=== PATIENT | male | born 1965 | race Caucasian/White ===

== ENCOUNTER → 2020-03-15 16:50 | Outpatient (BNVA) | payer OTHER, SELFPAY | PROVIDERS: Family Provider Nurse Practitioner Family; PCP Nurse Practitioner Family; Visit Provider Nurse Practitioner Family | DX: I10 Essential (primary) hypertension (principal); I50.9 Heart failure, unspecified; Z23 Encounter for immunization; Z96.659 Presence of unspecified artificial knee joint | CPT/HCPCS: 80053; 80061; 84443; 85025 ==

== ENCOUNTER → 2020-07-27 13:11 | Outpatient (BNVA) | payer OTHER, SELFPAY | PROVIDERS: Family Provider Nurse Practitioner Family; PCP Nurse Practitioner Family; Visit Provider Nurse Practitioner Family | DX: I50.9 Heart failure, unspecified (principal); I10 Essential (primary) hypertension; G62.9 Polyneuropathy, unspecified; Z96.659 Presence of unspecified artificial knee joint | CPT/HCPCS: 80053; 80061; 84443; 85025 ==

== ENCOUNTER → 2021-01-09 16:04 | Outpatient (BNVA) | payer OTHER, SELFPAY | PROVIDERS: Family Provider Nurse Practitioner Family; PCP Nurse Practitioner Family; Visit Provider Nurse Practitioner Family | DX: S89.91XA Unspecified injury of right lower leg, initial encounter (principal); I10 Essential (primary) hypertension; X58.XXXA Exposure to other specified factors, initial encounter | CPT/HCPCS: 73562; 80053; 80061; 85025 ==

== ENCOUNTER 2021-02-17 19:36 | Emergency (ER) | payer OTHER, SELFPAY ==
[2021-02-17 19:51] VITALS: BP 148/90; PULSE 100; RESP 14; TEMP 36.3; O2SAT 96; BMI 37.5
[2021-02-17 20:40] VITALS: RESP 17; O2SAT 98
[2021-02-17] MEDS: morphine 4 mg/mL SDV 1 mL IM (20:40)
[2021-02-17] MEDS: neomycin-poly-bacitracin oint 28 gm 1 APPLIC TOPICAL (20:41)
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
[2021-02-17] MEDS: tetanus-dipt-pertussis 0.5 mL SDV IM (21:12)
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
[2021-02-17 21:43] VITALS: BP 138/87; PULSE 99; RESP 17; TEMP 36.6; O2SAT 96
--- NOTE | 2021-02-19 14:21 | DCPLANNER ---
tax manager had message to schedule a follow up appointment with Wound Care. tax manager called the Wound Care clinic, spoke with Kina, gave clinic patients information. tax manager was told that a follow up appointment is scheduled for Saturday, February 20, 2021 at 10:[address] Bermudez. Clinic will call patient with appointment information.
--- NOTE | 2021-03-14 13:48 | DCPLANNER ---
Patient had a follow up appointment scheduled for 02.20.21 with wound care, with Dr. Bermudez - patient did attend appointment.
== END 2021-02-17 21:52 | disposition home or self-care (01) ==
PROVIDERS: Emergency Provider Family Medicine; PCP Nurse Practitioner Family
DX: T22.011A Burn of unspecified degree of right forearm, initial encounter (principal); T23.001A Burn of unspecified degree of right hand, unspecified site, initial encounter; T20.00XA Burn of unspecified degree of head, face, and neck, unspecified site, initial encounter; T25.011A Burn of unspecified degree of right ankle, initial encounter; T31.0 Burns involving less than 10% of body surface; X01.0XXA Exposure to flames in uncontrolled fire, not in building or structure, initial encounter; I11.0 Hypertensive heart disease with heart failure; I50.9 Heart failure, unspecified; Z23 Encounter for immunization
CPT/HCPCS: 16020; 90471; 90715; 96372; 99283; J2270

== ENCOUNTER 2021-02-20 10:01 | Outpatient (CLI) | payer OTHER, SELFPAY | END 2021-02-20 10:02 | disposition home or self-care (01) | LOC: WOUND 10:03 | PROVIDERS: PCP Nurse Practitioner Family; Visit Provider Thoracic Surgery (Cardiothoracic Vascular Surgery) | DX: T23.261A Burn of second degree of back of right hand, initial encounter (principal); T25.211A Burn of second degree of right ankle, initial encounter; X08.8XXA Exposure to other specified smoke, fire and flames, initial encounter; L97.522 Non-pressure chronic ulcer of other part of left foot with fat layer exposed | CPT/HCPCS: 97597; G0463 ==

== ENCOUNTER 2021-02-27 15:06 | Outpatient (CLI) | payer OTHER, SELFPAY | END 2021-02-27 15:07 | disposition home or self-care (01) | LOC: WOUND 15:07 | PROVIDERS: PCP Nurse Practitioner Family; Visit Provider Thoracic Surgery (Cardiothoracic Vascular Surgery) | DX: L97.522 Non-pressure chronic ulcer of other part of left foot with fat layer exposed (principal); T23.261A Burn of second degree of back of right hand, initial encounter; T25.211A Burn of second degree of right ankle, initial encounter; X08.8XXA Exposure to other specified smoke, fire and flames, initial encounter | CPT/HCPCS: G0463 ==

== ENCOUNTER → 2021-06-26 11:20 | Outpatient (BNVA) | payer OTHER, SELFPAY | PROVIDERS: PCP Nurse Practitioner Family; Visit Provider Family Medicine | DX: G62.9 Polyneuropathy, unspecified (principal); I10 Essential (primary) hypertension; I50.9 Heart failure, unspecified; Z12.5 Encounter for screening for malignant neoplasm of prostate | CPT/HCPCS: 80053; 80061; 83880; 84443; G0103 ==

== ENCOUNTER → 2022-05-13 16:53 | Outpatient (BNVA) | payer OTHER, SELFPAY | PROVIDERS: PCP Nurse Practitioner Family; Visit Provider Family Medicine | DX: I10 Essential (primary) hypertension (principal); Z12.5 Encounter for screening for malignant neoplasm of prostate; I50.9 Heart failure, unspecified; G62.9 Polyneuropathy, unspecified; Z00.00 Encounter for general adult medical examination without abnormal findings | CPT/HCPCS: 80053; 80061; 84443; 85025; G0103 ==

== ENCOUNTER → 2023-08-12 12:07 | Outpatient (BNVA) | payer OTHER, SELFPAY | PROVIDERS: PCP Nurse Practitioner Family; Visit Provider Nurse Practitioner Family | DX: Z12.5 Encounter for screening for malignant neoplasm of prostate; I10 Essential (primary) hypertension; I50.9 Heart failure, unspecified; R73.9 Hyperglycemia, unspecified | CPT/HCPCS: 80053; 80061; 83036; 83880; 84443; 85025; G0103 ==

== ENCOUNTER 2024-05-25 14:00 | Emergency (ER) | payer OTHER, SELFPAY ==
[2024-05-25 14:13] VITALS: BP 153/89; PULSE 98; RESP 18; TEMP 36.7; O2SAT 94
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
[2024-05-25 14:33] VITALS: BP 148/92; PULSE 89; RESP 16; TEMP 36.7; O2SAT 95
== END 2024-05-25 14:39 | disposition home or self-care (01) ==
PROVIDERS: Emergency Provider Physician Assistant; PCP Nurse Practitioner Family
DX: S01.01XA Laceration without foreign body of scalp, initial encounter (principal); I11.0 Hypertensive heart disease with heart failure; I50.9 Heart failure, unspecified; W22.8XXA Striking against or struck by other objects, initial encounter
CPT/HCPCS: 12001; 99282

== ENCOUNTER → 2024-07-15 09:18 | Outpatient (BNVA) | payer OTHER, SELFPAY | PROVIDERS: PCP Nurse Practitioner Family; Visit Provider Family Medicine | DX: R73.9 Hyperglycemia, unspecified (principal) | CPT/HCPCS: 80053; 80061; 82306; 83036; 84443; 85025 ==

== ENCOUNTER → 2024-08-11 12:15 | Outpatient (BNVA) | payer OTHER, SELFPAY | PROVIDERS: PCP Nurse Practitioner Family; Visit Provider Family Medicine | DX: Z12.5 Encounter for screening for malignant neoplasm of prostate (principal); B35.9 Dermatophytosis, unspecified; I50.9 Heart failure, unspecified; W57.XXXA Bitten or stung by nonvenomous insect and other nonvenomous arthropods, initial encounter | CPT/HCPCS: 80076; 83880; 86618; 86666; 86757; G0103 ==

== ENCOUNTER → 2025-10-18 16:02 | Outpatient (BNVA) | payer OTHER, SELFPAY | PROVIDERS: PCP Nurse Practitioner Family; Visit Provider Nurse Practitioner Family | DX: I10 Essential (primary) hypertension (principal); I50.9 Heart failure, unspecified; Z12.5 Encounter for screening for malignant neoplasm of prostate | CPT/HCPCS: 80053; 80061; 82306; 82607; 83036; 83880; 84443; 85025; G0103 ==

== ENCOUNTER 2025-10-24 10:58 | Outpatient (CLI) | payer OTHER, SELFPAY ==
--- NOTE | 2025-10-24 11:02 | XRR_ITS ---
PROCEDURE INFORMATION: Exam: XR Right Femur Exam date and time: 10/24/2025 11:12 AM Age: 59 years old Clinical indication: Injury or trauma; Other: Fall from ladder; Blunt trauma; Thigh or upper leg; Injury details: Low back, RT femur and hip pain, chronic, PT fell off ladder 3-4 months ago; Prior surgery; Surgery date: 1-6 months; Surgery type: Right femur; Additional info: M79.604 - pain in right leg TECHNIQUE: Imaging protocol: Radiologic exam of the right femur. Views: 2 views. COMPARISON: CR XR knee RT 3V* [id number] 01/09/2021 4:06 PM FINDINGS: Bones/joints: There is severe right hip degenerative osteoarthritis with complete loss of the superior articular joint space. Chronic degenerative subchondral sclerosis and subchondral cyst formation is evident within the right acetabulum and femoral head. There is marginal osteophytosis. There is a healed distal femoral diaphyseal fracture. Low compression lateral plate and screw fixator it spans the right femoral diaphysis. There are 2 fractured screws at the proximal femoral diaphysis without evidence of hardware displacement or retraction. Long stem constrained total knee arthroplasty is partially visualized. The patella is located. It is small in caliber with chronic remodeling. Soft tissues: Unremarkable. XR/XR femur RT min 2V* [id number] IMPRESSION: 1. Severe right hip degenerative osteoarthritis, stable. 2. Stable nondisplaced fractures of proximal femoral fixation screws. 3. Healed distal femoral diaphyseal fracture with chronic bone remodeling.
--- NOTE | 2025-10-24 11:02 | XRR_ITS ---
PROCEDURE INFORMATION: Exam: XR Right Hip Exam date and time: 10/24/2025 11:12 AM Age: 59 years old Clinical indication: Injury or trauma; Other: Fall from ladder; Blunt trauma (contusions or hematomas); Injury details: Low back, RT femur and hip pain, chronic, PT fell off ladder 3-4 months ago; Prior surgery; Surgery date: 1-6 months; Surgery type: Right femur; Additional info: M25.551 - pain in right hip TECHNIQUE: Imaging protocol: Radiologic exam of the right hip. Views: 1 view hip with pelvis when performed. COMPARISON: CR XR lumbar spine 2-3V* [id number] 10/24/2025 11:12 AM FINDINGS: Bones/joints: There is a left total hip arthroplasty. There is severe right hip degenerative osteoarthritis. There is complete loss of the superior articular joint space with degenerative subchondral cysts and subchondral sclerosis within the right femoral head and acetabulum. Proximal aspect of right femoral compression plate and screw fixation device is identified. The 2nd and 3rd fixation screws when counting from superior position are fractured. They are not retracted or distracted. The plate and screw fixation device is intact along the lateral cortex. There is partial visualization of remodeling of the right femoral diaphysis. Soft tissues: Unremarkable. XR/XR hip RT 2-3V wo/w pel* [id number] IMPRESSION: 1. Severe right hip degenerative osteoarthritis 2. Fractures of 2 of the proximal cortical screws within the lateral femoral fixation plate.
--- NOTE | 2025-10-24 11:02 | XRR_ITS ---
PROCEDURE INFORMATION: Exam: XR Lumbosacral Spine Exam date and time: 10/24/2025 11:12 AM Age: 59 years old Clinical indication: Injury or trauma; Other: Fall from ladder; Blunt trauma (contusions or hematomas); Low back, RT femur and hip pain, chronic, PT fell off ladder 3-4 months ago; Additional info: M54.50 - low back pain, unspecified TECHNIQUE: Imaging protocol: Radiologic exam of the lumbosacral spine. Views: 2 or 3 views. COMPARISON: CR XR hip RT 2-3V wo/w pel* [id number] 10/24/2025 11:12 AM FINDINGS: Bones/joints: The vertebral body heights are well-maintained. There is [id number] degenerative intervertebral disc space height loss throughout. Degenerative endplate sclerosis and anterior marginal osteophytosis is present throughout. There is moderate to severe facet arthropathy dominating at L4-L5 and L5-S1. Soft tissues: Unremarkable. XR/XR lumbar spine 2-3V* [id number] IMPRESSION: Moderate degenerative changes without radiographic evidence of acute process.
== END 2025-10-24 10:59 | disposition home or self-care (01) ==
LOC: RAD 10:59
PROVIDERS: PCP Nurse Practitioner Family; Visit Provider Nurse Practitioner Family
DX: M54.50 Low back pain, unspecified (principal); M25.551 Pain in right hip; M79.604 Pain in right leg; M47.816 Spondylosis without myelopathy or radiculopathy, lumbar region; M51.369 Other intervertebral disc degeneration, lumbar region without mention of lumbar back pain or lower extremity pain; M25.78 Osteophyte, vertebrae; M16.11 Unilateral primary osteoarthritis, right hip; T84.115A Breakdown (mechanical) of internal fixation device of left femur, initial encounter; Z96.641 Presence of right artificial hip joint; Z87.81 Personal history of (healed) traumatic fracture; W11.XXXA Fall on and from ladder, initial encounter; Z96.651 Presence of right artificial knee joint; M47.897 Other spondylosis, lumbosacral region
CPT/HCPCS: 72100; 73502; 73552